=== PATIENT | male | born 1980 | race African-American/Black ===

== ENCOUNTER 2019-06-18 11:11 | Emergency (ER) | payer MEDICAID ==
[~2019-06-18] VITALS: Ht 180.3 cm; Wt 99.8 kg
[2019-06-18 11:27] VITALS: BP 149/77
[2019-06-18] MEDS ORDERED: KETOROLAC TROMETH 60MG/2ML VIAL IM ONE (11:45)
== END 2019-06-18 13:11 | disposition home or self-care (01) ==
LOC: ER 11:11
DX: S92.355A Nondisplaced fracture of fifth metatarsal bone, left foot, initial encounter for closed fracture (principal); F17.210 Nicotine dependence, cigarettes, uncomplicated; F12.10 Cannabis abuse, uncomplicated; W21.31XA Struck by shoe cleats, initial encounter; Y93.89 Activity, other specified; Y92.89 Other specified places as the place of occurrence of the external cause; Y99.8 Other external cause status
CPT/HCPCS: 29515; 73630; 96372; 99283; J1885